=== PATIENT | female | born 1965 | race Hispanic/Latino ===

== ENCOUNTER 2019-01-04 19:53 | Emergency (ER) | payer MEDICARE ==
--- OUTSIDE RECORDS SUMMARY | 2019-01-04 19:55 | XMS REPORT ---
:1965 Author Organization eClinicalWorks Care Team Providers Name Role Phone Jonathan Glass Provider Role Unavailable Allergies, Adverse Reactions, Alerts Substance Reaction Event Type N.K.D.A. 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
--- OUTSIDE RECORDS SUMMARY | 2019-01-04 19:56 | XMS REPORT ---
:1965 Author Organization eClinicalWorks Care Team Providers Name Role Phone Tom Lambert Provider Role Unavailable Allergies, Adverse Reactions, Alerts Substance Reaction Event Type N.K.D.A. 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
[2019-01-04 20:50] LABS: Urine Blood TRACE (NEG); Urine Glucose NEGATIVE (NEG); Urine Protein NEGATIVE (NEG); Urine Specific Gravity 1.005 (1.005-1.030); Urine pH 6.5 (5.0-7.0)
--- NOTE | 2019-01-04 21:01 | RAD REPORT ---
EXAM DESCRIPTION: CT - Stone Protocol - 01/04/2019 8:53 pm CLINICAL HISTORY: Left flank pain COMPARISON: CT April 2008 TECHNIQUE: Axial 5 mm thick images were obtained without oral or IV contrast. The [id number] span s the entirety of the system including uppermost abdomen and lung bases. All CT scans are performed using dose optimization technique as appropriate and may include automated exposure control or mA/KV adjustment according to patient size. FINDINGS: No hydronephrosis is present and no obstructing ureteral calculi. No suspicious renal mass es. Isodense masses and pyelonephritis are not excluded on a stone protocol CT scan. No urinary bladd er suspicious finding. No significant adrenal finding. Uterus and ovaries show no suspicious findings for patient age. Phleboliths are seen along the pelvic floor. Small calcifications in the uterus rig ht-sided fundus likely part of a small fibroid. Imaged portions of the liver, spleen and pancreas show no suspicious findings on non-contrast imaging . Cholecystectomy clips are present. No biliary tree dilatation. No suspicious bowel findings. No hernia, mass or bulky lymphadenopathy noted. No free air, free fluid or inflammatory stranding. No significant bony abnormality. IMPRESSION: Noncontrast CT abdomen and pelvis imaging showing no significant or suspicious finding. Isodense masses and pyelonephritis are not excluded on stone protocol technique.Exam sensitivity is d ecreased in the absence of oral and IV contrast.
--- NOTE | 2019-01-04 21:29 | EDPHYS ---
Physician Documentation [facility] Name: Linda Pantoja Age: 53 yrs Sex: Female : 1965 Arrival Date: 01/04/2019 Time: 19:56 Bed 23 Private MD: Herlinda Lambert ED Physician Kulwant Celeste HPI: 01/04 21:26 This 53 yrs old Female presents to ER via Ambulatory with complaints of Pelvic kb Pain. 21:26 The patient presents with abdominal pain in the left lower quadrant. Onset: The kb symptoms/episode began/occurred 3 month(s) ago. The symptoms do not radiate. Associated signs and symptoms: none. The symptoms are described as constant. Modifying factors: The symptoms are alleviated by nothing, the symptoms are aggravated by nothing. Severity of pain: At its worst the pain was moderate in the emergency department the pain is unchanged. The patient has not experienced similar symptoms in the past. The patient has not recently seen a physician. Pt reports LLQ pain that has been constant, non-changing for 3 months. Has been seen by Dr Lambert and has US scheduled for next week. . 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 - Social history:: Smoking status: Patient/guardian denies using tobacco. - Ebola Screening: : Patient negative for fever greater than or equal to 101.5 degrees Fahrenheit, and additional compatible Ebola Virus Disease symptoms. ROS: 21:25 Constitutional: Negative for fever, chills, and weight loss, Cardiovascular: Negative kb for chest pain, palpitations, and edema, Respiratory: Negative for shortness of breath, cough, wheezing, and pleuritic chest pain, Back: Negative for injury and pain, : Negative for injury, bleeding, discharge, and swelling, MS/Extremity: Negative for injury and deformity, Skin: Negative for injury, rash, and discoloration, Neuro: Negative for headache, weakness, numbness, tingling, and seizure. 21:25 Abdomen/GI: Positive for abdominal pain, Negative for nausea, vomiting, and diarrhea. Exam: 21:25 Constitutional: This is a well developed, well nourished patient who is awake, alert, kb and in no acute distress. Head/Face: Normocephalic, atraumatic. Chest/axilla: Normal chest wall appearance and motion. Nontender with no deformity. No lesions are appreciated. Cardiovascular: Regular rate and rhythm with a normal S1 and S2. No gallops, murmurs, or rubs. Normal PMI, no JVD. No pulse deficits. Respiratory: Lungs have equal breath sounds bilaterally, clear to auscultation and percussion. No rales, rhonchi or wheezes noted. No increased work of breathing, no retractions or nasal flaring. Back: No spinal tenderness. No costovertebral tenderness. Full range of motion. Skin: Warm, dry with normal turgor. Normal color with no rashes, no lesions, and no evidence of cellulitis. MS/ Extremity: Pulses equal, no cyanosis. Neurovascular intact. Full, normal range of motion. Neuro: Awake and alert, GCS 15, oriented to person, place, time, and situation. Cranial nerves II-XII grossly intact. Motor strength 5/5 in all extremities. Sensory grossly intact. Cerebellar exam normal. Normal gait. 21:25 Abdomen/GI: Inspection: abdomen appears normal, Bowel sounds: normal, in all quadrants, Palpation: mild abdominal tenderness, in the left lower quadrant. Vital Signs: 20:03 BP 148 / 80; Pulse 93; Resp 17 S; Temp 97.8(TE); Pulse Ox 98% on R/A; Weight 72.57 kg jd3 (R); Height 5 ft. 2 in. (157.48 cm) (R); Pain 9/10; 20:43 BP 121 / 83; Pulse 84; Resp 18; Pulse Ox 98% on R/A; Pain 9/10; mg2 20:03 Body Mass Index 29.26 (72.57 kg, 157.48 cm) jd3 MDM: 20:30 Patient medically screened. kb 21:26 Data reviewed: vital signs, nurses notes. Data interpreted: Pulse oximetry: on room air kb is 98 %. Interpretation: normal. Counseling: I had a detailed discussion with the patient and/or guardian regarding: the historical points, exam findings, and any diagnostic results supporting the discharge/admit diagnosis, lab results, radiology results, the need for outpatient follow up, a family practitioner, to return to the emergency department if symptoms worsen or persist or if there are any questions or concerns that arise at home. 01/04 20:42 Order name: Urine Dipstick--Ancillary (enter results); Complete Time: 20:51 kb 01/04 20:39 Order name: CT Stone Protocol; Complete Time: 21:02 kb Administered Medications: 21:33 Drug: TORadol 60 mg Route: IM; Site: right gluteus; mg2 21:33 Follow up: Response: No adverse reaction; Medication administered at discharge. mg2 Disposition: 01/05 08:52 Co-signature as Attending Physician, Kulwant Celeste MD I agree with the assessment and khadijah plan of care. Disposition: 01/04/19 21:28 Discharged to Home. Impression: Lower abdominal pain, unspecified. - Condition is Stable. - Discharge Instructions: Abdominal Pain, Adult, [id number]. - Medication Reconciliation Form, Thank You Letter, Antibiotic Education, Prescription Opioid Use form. - Follow up: Emergency Department; When: As needed; Reason: Worsening of condition. Follow up: Private Physician; When: 2 - 3 days; Reason: Recheck today's complaints, Continuance of care, Re-evaluation by your physician. Signatures: Dispatcher [employer] EDDahiana Mason, SEAFOOD PACKER-C SEAFOOD PACKER-Kulwant Bal MD MD cha Davies, Jonathon, RN RN jd3 Leonardo Martin RN RN mg2 Corrections: (The following items were deleted from the chart) 01/04 21:47 21:28 01/04/2019 21:28 Discharged to Home. Impression: Lower abdominal pain, mg2 unspecified. Condition is Stable. Forms are Medication Reconciliation Form, Thank You Letter, Antibiotic Education, Prescription Opioid Use. Follow up: Emergency Department; When: As needed; Reason: Worsening of condition. Follow up: Private Physician; When: 2 - 3 days; Reason: Recheck today's complaints, Continuance of care, Re-evaluation by your physician. kb
--- NOTE | 2019-01-04 21:29 | ER ---
Nurse's Notes [facility] Name: Linda Pantoja Age: 53 yrs Sex: Female : 1965 Arrival Date: 01/04/2019 Time: 19:56 Bed 23 Private MD: Herlinda Lambert Diagnosis: Lower abdominal pain, unspecified Presentation: 01/04 20:00 Presenting complaint: Patient states: "I am having pain in my lower left side of my jd3 stomach. it has been hurting me for about 3 months now.". Transition of care: patient was not received from another setting of care. Onset of symptoms was November 05, 2018. Risk Assessment: Do you want to hurt yourself or someone else? Patient reports no desire to harm self or others. Initial Sepsis Screen: Does the patient meet any 2 criteria? No. Patient's initial sepsis screen is negative. Does the patient have a suspected source of infection? No. Patient's initial sepsis screen is negative. Care prior to arrival: None. 20:00 Method Of Arrival: Ambulatory jd3 20:00 Acuity: LORENZO 3 jd3 Triage Assessment: 20:01 Pain: Complains of pain in left lower quadrant Is intermittent. 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 - Social history:: Smoking status: Patient/guardian denies using tobacco. - Ebola Screening: : Patient negative for fever greater than or equal to 101.5 degrees Fahrenheit, and additional compatible Ebola Virus Disease symptoms. Screenin:39 Abuse screen: Denies threats or abuse. Denies injuries from another. Nutritional mg2 screening: No deficits noted. Tuberculosis screening: No symptoms or risk factors identified. Fall Risk None identified. Assessment: 20:43 General: Appears in no apparent distress. comfortable, Behavior is calm, cooperative. mg2 Pain: Complains of pain in left lower quadrant Pain does not radiate. Pain currently is 9 out of 10 on a pain scale. Quality of pain is described as aching, Pain began gradually, Is intermittent. Neuro: Level of Consciousness is awake, alert, obeys commands, Oriented to person, place, time, situation. Cardiovascular: Capillary refill < 3 seconds Patient's skin is warm and dry. Respiratory: Airway is patent Respiratory effort is even, unlabored, Respiratory pattern is regular, symmetrical. GI: Abdomen is flat, non-distended, Reports lower abdominal pain. : Reports pain in left lower quadrant(s) since 3 months ago. EENT: No signs and/or symptoms were reported regarding the EENT system. Derm: Skin is intact, is healthy with good turgor, Skin is pink, warm \\T\\ dry. normal. Musculoskeletal: Circulation, motion, and sensation intact. Capillary refill < 3 seconds. 21:46 Reassessment: Patient states feeling better. mg2 Vital Signs: 20:03 BP 148 / 80; Pulse 93; Resp 17 S; Temp 97.8(TE); Pulse Ox 98% on R/A; Weight 72.57 kg jd3 (R); Height 5 ft. 2 in. (157.48 cm) (R); Pain 9/10; 20:43 BP 121 / 83; Pulse 84; Resp 18; Pulse Ox 98% on R/A; Pain 9/10; mg2 20:03 Body Mass Index 29.26 (72.57 kg, 157.48 cm) jd3 ED Course: 19:56 Patient arrived in ED. am2 19:56 Herlinda Lambert MD is Private Physician. am2 20:01 Triage completed. jd3 20:04 Dahiana Neil FNP-C is [facility]. kb 20:04 Kulwant Celeste MD is Attending Physician. kb 20:04 Arm band placed on Patient notified of wait time. jd3 20:34 Leonardo Martin, JUAN ALBERTO is Primary Nurse. mg2 20:[address] via wheelchair. vm2 20:45 Patient has correct armband on for positive identification. mg2 20:53 CT Stone Protocol In Process Unspecified. EDMS 21:46 No provider procedures requiring assistance completed. Patient did not have IV access mg2 during this emergency room visit. Administered Medications: 21:33 Drug: TORadol 60 mg Route: IM; Site: right gluteus; mg2 21:33 Follow up: Response: No adverse reaction; Medication administered at discharge. mg2 Outcome: 21:28 Discharge ordered by MD. kb 21:46 Discharged to home ambulatory, with family. mg2 21:46 Condition: stable 21:46 Discharge instructions given to patient, family, Instructed on discharge instructions, follow up and referral plans. Demonstrated understanding of instructions, follow-up care. 21:47 Patient left the ED. mg2 Signatures: Dispatcher [employer] EDMS Dahiana Neil, MIA-C DEVELOPMENT ANALYST-Corrie Keyes Victoria 2 Kostas Mckeon RN RN jLeonardo Teague RN RN mg2
[2019-01-04] MEDS ORDERED: KETOROLAC 30 MG/ML INJ ONE (21:41)
== END 2019-01-04 21:47 | disposition home or self-care (01) ==
LOC: ER 19:53
DX: R10.32 Left lower quadrant pain (principal)
CPT/HCPCS: 74176; 76377; 81003; 96372; 99284

== ENCOUNTER 2019-03-02 06:25 | Day surgery (SDC) | payer MEDICARE ==
--- OUTSIDE RECORDS SUMMARY | 2019-03-02 06:28 | XMS REPORT ---
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
--- OUTSIDE RECORDS SUMMARY | 2019-03-02 06:28 | XMS REPORT ---
[...] Unit Abnormality Flag URINALYSIS AUTO W/O SCOPE (91057) ----NIT neg 20181223 ----URO 0.2 20181223 ----PROTEIN neg 20181223 ----pH 5.5 20181223 ----BLO 1+ 20181223 ----GLUCOSE neg 20181223 ----STEPHANIE 2+ 20181223 ----BILIRUBIN neg 20181223 ----KETONES neg 20181223 ----SPECIFIC GRAVITY 1.030 20181223 Summary Purpose eClinicalWorks Submission
--- OUTSIDE RECORDS SUMMARY | 2019-03-02 06:28 | XMS REPORT ---
:1965 Author Organization eClinicalWorks Care Team Providers Name Role Phone Jonathan Glass Provider Role Unavailable Allergies, Adverse Reactions, Alerts Substance Reaction Event Type N.K.D.A. Info Not Available Non Drug Allergy Problems Problem Type Condition Code Onset Dates Condition Status Assessment LLQ abdominal pain R10.32 Active Problem Encounter for screening mammogram Z12.31 [...]
[2019-03-02] MEDS ORDERED: Ringers Lactate 1,000 ML IV ONE (06:59)
[2019-03-02] MEDS ORDERED: LIDOCAINE 1% MPF 5 ML VIAL ONE (07:37)
[2019-03-02] MEDS ORDERED: PROPOFOL 200 MG/20 ML VIAL IV ONE (07:37)
--- NOTE | 2019-03-24 03:45 | ENDO RPT ---
[address], [address] COLONOSCOPY PROCEDURE REPORT EXAM DATE: 03/02/2019 PATIENT NAME: Linda Pantoja MR #: [id number] BIRTHDATE: 1965 ATTENDING: Neftali Barber MD STATUS: outpatient TRAY DELIVERY AIDE: Hu Escobedo RN, Nubia Harper RN, and Thalia Culp INDICATIONS: The patient is a 53 yr old Female here for a colonoscopy due to abdominal pain PROCEDURE PERFORMED: Colonoscopy MEDICATIONS: Per Anesthesia. ESTIMATED BLOOD LOSS: None CONSENT: The patient understands the risks and benefits of the procedure and understands that these risks include, but are not limited to: sedation, allergic reaction, infection, perforation and/or bleeding. Alternative means of evaluation and treatment include, among others: physical exam, x-rays, and/or surgical intervention. The patient elects to proceed with this endoscopic procedure. DESCRIPTION OF PROCEDURE: During intra-op preparation period all mechanical medical equipment was checked for proper function. Hand hygiene and appropriate measures for infection prevention was taken. Procedure, possible complications, alternatives including, but not limited to possibility of bleeding, perforation, tear, infection, sepsis, need for surgery, need for blood transfusion, were explained to the patient. After the risks, benefits and alternatives of the procedure were thoroughly explained, Informed consent was verified, confirmed and timeout was successfully executed by the treatment team. The patient was placed in the left lateral position. A digital rectal exam was performed and revealed external hemorrhoids. After appropriate level of anesthesia, the scope was passed. The [id number] ([id number]) endoscope was introduced through the anus and advanced to the cecum, which was identified by transillumination from the light source, the appendix, and the ileocecal valve. The quality of the prep was fair. The instrument was then slowly withdrawn as the colon was fully examined. Scope withdrawal time was . COLON FINDINGS: Internal and external hemorrhoids were found. Retroflexed views revealed no abnormalities. The scope was then completely withdrawn from the patient and the procedure terminated. ADVERSE EVENTS: There were no complications. IMPRESSIONS: Internal and external hemorrhoids RECOMMENDATIONS: follow-up: office 1 week(s) RECALL: Return in 5-10 year(s) for Colonoscopy. Neftali Barber MD eSigned: Neftali Barber MD 03/02/2019 7:50 AM cc: Jonathan Glass MD CPT CODES: ICD9 CODES: PATIENT NAME: Linda Pantoja MR#: [id number]
== END 2019-03-02 08:35 | disposition home health service (06) ==
LOC: OR 06:25
PROVIDERS: ATTEND Surgery
PROC: 0DJD8ZZ Inspection of Lower Intestinal Tract, Via Natural or Artificial Opening Endoscopic (ICD-10-PCS; principal; 2019-03-02 07:30)
DX: K64.8 Other hemorrhoids (principal); K64.4 Residual hemorrhoidal skin tags; R10.32 Left lower quadrant pain; Z80.0 Family history of malignant neoplasm of digestive organs
CPT/HCPCS: 45378; J2704